=== PATIENT | male | born 1985 | race Caucasian/White ===

== ENCOUNTER 2016-10-08 10:19 | Emergency (ER) | payer MEDICAID ==
[~2016-10-08] VITALS: Ht 157.5 cm; Wt 68.0 kg
[2016-10-08 10:26] VITALS: Ht 157.5 cm; Wt 68.0 kg
[2016-10-08] MEDS ORDERED: ONDANSETRON (ODT) 4 MG TAB ODT STA (10:44)
[2016-10-08] MEDS ORDERED: LIDOCAINE/MYLANTA 40 ML BTL PO STA (10:44)
[2016-10-08 11:09] LABS: ADD UMIC NO; UR ASCORBIC ACID NEGATIVE (NEGATIVE); UR BILIRUBIN (Dip) NEGATIVE (NEGATIVE); UR BLOOD (Dip) NEGATIVE (NEGATIVE); UR CLARITY CLEAR (CLEAR); UR COLOR COLORLESS (YELLOW); UR GLUCOSE (Dip) NEGATIVE (NEGATIVE); UR KETONES (Dip) NEGATIVE (NEGATIVE); UR LEUKOCYTE ESTERASE (Dip) NEGATIVE Leu/ul (NEGATIVE); UR NITRITE (Dip) NEGATIVE (NEGATIVE); UR SPECIFIC GRAVITY (Dip) 1.003 (1.003-1.030); UR TOTAL PROTEIN (Dip) NEGATIVE (NEGATIVE); UR UROBILINOGEN (Dip) NEGATIVE (NEGATIVE)
[2016-10-08 11:13] LABS: BASOPHILS % 0.6 % (0.0-2.0); HEMOGLOBIN 16.3 g/dl (14.0-18.0); MEAN PLATELET VOLUME 11.2 fl (7.4-10.4)
[2016-10-08 11:26] LABS: ALBUMIN 4.6 g/dl (3.3-4.9); ALBUMIN/GLOBULIN RATIO 1.31; BILIRUBIN,INDIRECT 0.6 mg/dl (0-1.1); BILIRUBIN,TOTAL 0.6 mg/dl (0.2-1.3); CALCIUM 9.7 mg/dl (8.4-10.2); CREATININE 0.67 mg/dl (0.61-1.24); POTASSIUM 3.9 mmol/L (3.5-5.1); TOTAL PROTEIN 8.1 g/dl (6.1-8.1)
--- NOTE | 2016-10-08 12:06 | ERD ---
ER Documentation Chief Complaint Date/Time DATE: 10/08/16 TIME: 12:03 Chief Complaint ap with nausea today HPI 31-year-old male otherwise healthy presents with epigastric abdominal pain nausea that started this morning. He states that he has had a similar pain where he was diagnosed with a stomach infection where he was treated with antibiotics 8 months ago. Pain is burning, achy, worse when he is better at rest. Has not had any fevers or chills. No chest pain shortness of breath. ROS All systems reviewed and are negative except as per history of present illness. Medications Home Meds Active Scripts Omeprazole* (Omeprazole*) 20 Mg Capsule.dr, 20 MG PO DAILY, #30 Prov:SHIRA CRAMER PA-C 10/08/16 Ranitidine Hcl* (Zantac*) 150 Mg Tablet, 150 MG PO BID Y for EPIGASTRIC PAIN, # 30 TAB Prov:SHIRA CRAMER PA-C 10/08/16 Allergies Allergies: Coded Allergies: No Known Allergy (Unverified , 10/08/16) PMhx/Soc Medical and Surgical Hx: pt denies Medical Hx, pt denies Surgical Hx Hx Alcohol Use: No Hx Substance Use: No Hx Tobacco Use: No Smoking Status: Never smoker Physical Exam Vitals Vital Signs Date Time Temp Pulse Resp B/P Pulse Ox O2 Delivery O2 Flow Rate FiO2 10/08/16 13:27 97.2 77 18 124/72 99 Room Air 10/08/16 10:26 97.2 70 18 120/75 99 Physical Exam General: Well-developed, well-nourished. The patient appears in no acute distress. HEENT: Head is normocephalic, atraumatic. No scleral icterus. Neck: Supple. Nontender. Lungs: Clear to auscultation. Normal air movement. Heart: Regular rate and rhythm. S1 and S2 are normal. No murmurs, gallops, or rubs. Abdomen: Soft, epigastric area is tender, nondistended. Bowel sounds are normoactive. Negative Carlson sign. No masses. Extremities: No clubbing or cyanosis. Normal pulses. Moving extremities x 4. No weakness. Neurologic: Alert and oriented 3. No focal deficits. Skin: Normal turgor. No rash or lesions. Result Diagram: 10/08/16 1056 10/08/16 1056 Results 24 hrs Laboratory Tests Test 10/08/16 10:56 White Blood Count 6.710^3/ul Red Blood Count 5.5010^6/ul Hemoglobin 16.3g/dl Hematocrit 45.1% Mean Corpuscular Volume 82.0fl Mean Corpuscular Hemoglobin 29.6pg Mean Corpuscular Hemoglobin Concent 36.1g/dl Red Cell Distribution Width 12.3% Platelet Count 29677^3/UL Mean Platelet Volume 11.2fl Neutrophils % 66.3% Lymphocytes % 21.4% Monocytes % 9.0% Eosinophils % 2.1% Basophils % 0.6% Nucleated Red Blood Cells % 0.0/100WBC Neutrophils # 4.410^3/ul Lymphocytes # 1.410^3/ul Monocytes # 0.610^3/ul Eosinophils # 0.110^3/ul Basophils # 0.010^3/ul Nucleated Red Blood Cells # 0.010^3/ul Urine Color COLORLESS Urine Clarity CLEAR Urine pH 7.0 Urine Specific [place] 1.003 Urine Ketones NEGATIVEmg/dL Urine Nitrite NEGATIVEmg/dL Urine Bilirubin NEGATIVEmg/dL Urine Urobilinogen NEGATIVEmg/dL Urine Leukocyte Esterase NEGATIVELeu/ul Urine Hemoglobin NEGATIVEmg/dL Urine Glucose NEGATIVEmg/dL Urine Total Protein NEGATIVEmg/dl Sodium Level 146mmol/L Potassium Level 3.9mmol/L Chloride Level 100mmol/L Carbon Dioxide Level 30mmol/L Anion Gap 20 Blood Urea Nitrogen 11mg/dl Creatinine 0.67mg/dl Glucose Level 96mg/dl Calcium Level 9.7mg/dl Total Bilirubin 0.6mg/dl Direct Bilirubin 0.00mg/dl Indirect Bilirubin 0.6mg/dl Aspartate Amino Transf (AST/SGOT) 32IU/L Alanine Aminotransferase (ALT/SGPT) 35IU/L Alkaline Phosphatase 91IU/L Total Protein 8.1g/dl Albumin 4.6g/dl Globulin 3.50g/dl Albumin/Globulin Ratio 1.31 Lipase 114U/L Current Medications Medications (Trade) Dose Ordered Sig/Shilpa Route PRN Reason Start Time Stop Time Status Last Admin Dose Admin Miscellaneous Medication (Gi Cocktail (2)) 40 ml ONCE STAT PO 10/08/16 10:44 10/08/16 10:46 DC 10/08/16 10:53 Ondansetron HCl (Zofran Odt) 4 mg ONCE STAT ODT 10/08/16 10:44 10/08/16 10:46 DC 10/08/16 10:52 Procedures/MDM ED course: He was given a GI cocktail, Zofran for his symptoms. Serial abdominal examinations were done and he reports a feeling much better. Medical decision makin-year-old male presents with epigastric abdominal pain, presenting with tenderness in the epigastric region that is localized, with normal labs. He was trialed on a GI cocktail reports he feeling much better. He was treated for presumed gastritis versus GERD, he does have a history with sounds to be possibly an H pylori infection a months ago which she was treated for. I have notified the patient that for further testing for H. 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 He will be started on a PPI as well as ranitidine for symptoms. There are no signs of acute hepatobiliary process, no evidence of pancreatitis, stable for discharge. Departure Diagnosis: Primary Impression: Abdominal pain Condition: Good SHIRA CRAMER PA-C Oct 08, 2016 12:05
[2016-10-08 12:38] LABS: EOSINOPHILS # 0.1 10^3/ul (0.0-0.5); EOSINOPHILS % 2.1 % (0.0-7.0); HEMATOCRIT 45.1 % (42.0-52.0); LYMPHOCYTES # 1.4 10^3/ul (0.8-2.9); LYMPHOCYTES % 21.4 % (15.0-51.0); MEAN CORPUSCULAR HEMOGLOBIN 29.6 pg (29.0-33.0); MEAN CORPUSCULAR HGB CONC 36.1 g/dl (32.0-37.0); MONOCYTE # 0.6 10^3/ul (0.3-0.9); NEUTROPHIL # 4.4 10^3/ul (1.6-7.5); NEUTROPHILS % 66.3 % (39.0-77.0); PLATELET COUNT 218 10^3/UL (140-415); RED CELL DISTRIBUTION WIDTH 12.3 % (11.5-14.5); WHITE BLOOD COUNT 6.7 10^3/ul (4.8-10.8)
[2016-10-08] MEDS ORDERED: OMEP20CA16 PO (12:55)
[2016-10-08] MEDS ORDERED: RANI150T9 PO (12:55)
[2016-10-08 13:27] VITALS: BP 124/72; PULSE 77; RESP 18; TEMP 97.2
== END 2016-10-08 13:18 | disposition home or self-care (01) ==
LOC: FTE 10:19
DX: R10.13 Epigastric pain (principal); R11.0 Nausea
CPT/HCPCS: 80053; 81003; 83690; 85025; Z7610; 36415; 99283

== ENCOUNTER 2018-08-20 00:48 | Emergency (ER) | payer SELFPAY ==
[~2018-08-20] VITALS: Ht 170.2 cm; Wt 70.0 kg
[~2018-08-20 00:48] MED LIST: OMEP20CA16 PO; RANI150T35 PO
[2018-08-20 00:51] VITALS: Ht 170.2 cm; Wt 70.0 kg
--- NOTE | 2018-08-20 01:08 | ERD ---
ER Documentation Chief Complaint Chief Complaint TESTICULAR PAIN, RADIATES LEFT GROIN X 3 DAYS. HPI This is a 32-year-old male presents emergency department with complaints of right testicular pain for about 3 days. Denies headache, head injury, loss of consciousness, dizziness, neck pain, neck stiffness, throat pain, difficulty swallowing, difficulty breathing lying flat, shoulder pain, chest pain, back pain, abdominal pain, nausea, vomiting, constipation, diarrhea, urinary symptoms, loss of bowel and bladder control, trauma, injury, falls, difficulty walking due to pain, numbness or tingling sensation, calf pain, recent travel, recent major surgery in the last 3 weeks, calf pain, recent long travel, recent exposure to any illness, recent antibiotic use in the last 3 months, fever, chills, seizures. Past medical history: Surgical history: Social: Denies smoking, use of alcoholic beverages, use of illegal drugs. ROS All systems reviewed and are negative except as per history of present illness. Medications Home Meds Active Scripts Ibuprofen* (Motrin*) 800 Mg Tab, 800 MG PO Q6H PRN for PAIN AND OR ELEVATED TEMP, #30 TAB Prov:HENRIQUE BRAR 08/20/18 Omeprazole* (Omeprazole*) 20 Mg Capsule.dr, 20 MG PO DAILY, #30 Prov:SHIRA CRAMER PA-C 10/08/16 Ranitidine Hcl* (Zantac*) 150 Mg Tablet, 150 MG PO BID PRN for EPIGASTRIC PAIN, #30 TAB Prov:SHIRA CRAMER PA-C 10/08/16 Allergies Allergies: Coded Allergies: No Known Allergy (Unverified , 10/08/16) PMhx/Soc Medical and Surgical Hx: pt denies Medical Hx, pt denies Surgical Hx Hx Alcohol Use: No Hx Substance Use: No Hx Tobacco Use: No Smoking Status: Never smoker Physical Exam Vitals Physical Exam Const: No acute distress Head: Atraumatic Eyes: Normal Conjunctiva ENT: Normal External Ears, Nose and Mouth. Neck: Full range of motion. No meningismus. Resp: Clear to auscultation bilaterally Cardio: Regular rate and rhythm, no murmurs Abd: Soft, non tender, non distended. Normal bowel sounds. Negative Carlson sign. Negative Renee sign (or test). Negative psoas sign. Negative Rovsing sign. Able to jump 10 times without developing lower abdominal pain. No CVA tenderness. : Equal hair distribution. Scrotal/testicular tenderness to palpation. No obvious swelling. No obvious discoloration. No penile swelling. Bilateral inguinal areas no swelling/tenderness/discoloration. Skin: No petechiae or rashes. No vesicular lesions. Back: No midline or flank tenderness Ext: No cyanosis, or edema Neur: Awake and alert. No neurological deficits. Psych: Normal Mood and Affect Results 24 hrs Laboratory Tests Test 08/20/18 01:15 Urine Color YELLOW Urine Clarity CLOUDY Urine pH 8.0 Urine Specific [place] 1.010 Urine Ketones NEGATIVE mg/dL Urine Nitrite NEGATIVE mg/dL Urine Bilirubin NEGATIVE mg/dL Urine Urobilinogen NEGATIVE mg/dL Urine Leukocyte Esterase NEGATIVE [place]/ul Urine Microscopic RBC 3 /HPF Urine Microscopic WBC 8 /HPF Urine Amorphous Crystals FEW /HPF Urine Bacteria FEW /HPF Urine Hemoglobin NEGATIVE mg/dL Urine Glucose NEGATIVE mg/dL Urine Total Protein NEGATIVE mg/dl Chlamydia trachomatis RNA (TMA) NOT DETECTED Chlamydia/GC Comment SEE NOTE Neisseria gonorrhoeae RNA (TMA) NOT DETECTED Current Medications Medications Dose Sig/Shilpa Start Time Status Last (Trade) Ordered Route PRN Stop Time Admin Dose Reason Admin Ibuprofen 800 mg ONCE ONCE 08/20/18 DC 08/20/18 (Motrin) PO 03:00 02:48 08/20/18 03:01 Procedures/MDM Diagnostic tests: Urinalysis: Reviewed. Ultrasound of the scrotum/testicle: Unremarkable testicular ultrasound. Negative for torsion. Culture urine: Sent. Gonorrhea and Chlamydia urine: Sent. Treatment: Motrin. Re-evaluation: Denies testicular pain. No abdominal tenderness. No CVA tenderness. Differential diagnosis I have low suspicion for testicular torsion, inguinal hernia, inguinal hernia with incarceration, acute abdomen. Final diagnosis: Testicular pain. Prescription: Motrin. Follow-up with PCP in the next 24-48 hours. Follow-up with urologist in the next 24 to 48 hours. Come back here in the emergency department for any new symptoms or any worsening symptoms. All questions and concerns were answered. Patient and family members verbalized understanding and agreed with plan of care. Hemodynamically stable on discharge. Departure Diagnosis: Primary Impression: Testicular pain Condition: Stable Additional Instructions: Follow-up with PCP in the next 24-48 hours. Follow-up with urologist in the next 24 to 48 hours. Come back here in the emergency department for any new symptoms or any worsening symptoms. HENRIQUE BRAR Aug 20, 2018 01:08
[2018-08-20] MEDS ORDERED: IBUP800T48 PO (02:45)
[2018-08-20] MEDS ORDERED: IBUPROFEN 800 MG TAB PO ONE (03:00)
[2018-08-20 03:02] VITALS: BP 132/75; PULSE 61; RESP 18
== END 2018-08-20 02:55 | disposition home or self-care (01) ==
LOC: FTE 00:48
DX: N50.811 Right testicular pain (principal)
CPT/HCPCS: 76870; 81001; 87086; 87591